=== PATIENT | female | born 1935 | race Caucasian/White ===

== ENCOUNTER → 2016-11-15 | Outpatient (REF) | payer OTHER, MEDICARE ==
[~2016-11-15] MED LIST: ADV250INH INH; ALPH0.1S OS; EDECRIN PO; FEXO60CA PO; FLON0.05; LUMI0.01 OU; VENTAER IN; WARF2.5T38 PO; WARF5TAB66 PO
== END ==
LOC: M SFHCPLAZ 11:37
PROVIDERS: ATTEND Physician Assistant Medical
DX: L97.922 Non-pressure chronic ulcer of unspecified part of left lower leg with fat layer exposed (principal)